=== PATIENT | male | born 1965 | race Caucasian/White ===

== ENCOUNTER 2024-01-25 02:16 | Emergency (ER) | payer SELFPAY ==
[2024-01-25 02:17] VITALS: PULSE 98; RESP 20; TEMP 36.6; O2SAT 98; BMI 57.4
--- NOTE | 2024-01-25 02:32 | W.ED.ALLEREA ---
HPI - Allergic Reaction General: Chief complaint: Allergic Reaction Stated complaint: Allergic Reation Time Seen by Provider: 01/25/24 02:18 History of Present Illness: HPI narrative: Patient presents to the ER with complaints of red itchy rash. Patient states that Claritin at home for left now it is getting better. Patient is had this rash a couple times in the past and it started the process of getting worked up for it but he is did not go back to his provider. Patient said is very pruritic in nature. Patient does not have any allergies that he is aware of or known sensitivities. This rash started earlier tonight. Review of Systems General: Reports: 10 or more systems reviewed and unremarkable except in HPI and below PFSH ED PFSH: Family History Denies family history of Diabetes CAD (coronary artery disease) Clotting disorder Dementia Hyperlipidemia Psychiatric illness Chronic kidney disease (CKD) Suicide Anesthesia complication Bleeding disorder Lung disease Cancer Hypertension Stroke Physical Exam Const: COMMON NORMALS: no acute distress, average body habitus, patient oriented x3, no limitations, healthy appearing, alert and well nourished HENMT: COMMON NORMALS: normocephalic, atraumatic, hearing grossly normal bilaterally, external ears normal, Normal external nose present, moist oral mucous membranes and oropharynx normal HEAD & SCALP: normocephalic and atraumatic NOSE: Normal external nose present EXTERNAL EAR: Yes external ears normal Neck/C-Spine: COMMON NORMALS: no JVD Chest: COMMONS NORMALS: normal inspection of the chest and normal palpation of entire chest wall Resp: COMMON NORMALS: normal respiratory effort, No retractions, No use of accessory muscles and clear to auscultation bilaterally AUSCULTATION: clear to auscultation bilaterally Cardio: COMMON NORMALS: no JVD, regular rate, regular rhythm, S1 normal heart sound present, S2 normal heart sound present, No gallops present (Cardio), No clicks present (Cardio), No murmurs present (Cardio) and No rub (Cardio) RATE: regular rate RHYTHM: regular rhythm HEART SOUNDS: S1 normal heart sound present and S2 normal heart sound present GI: COMMON NORMALS: Normal to inspection, nondistended, normoactive bowel sounds present, Soft to palpation, non-tender, No hepatosplenomegaly present and no masses PALPATION: Yes Soft to palpation and Yes No hepatosplenomegaly present Neuro: COMMON NORMALS: patient oriented x3 SENSORIUM/ORIENTATION: Yes alert Skin: NARRATIVE SKIN EXAM: Red blotchy rash across chest and back. Appears pruritic as patient is continuously scratching Course Vital Signs: Vital signs: Vital Signs Temperature 97.8 F 01/25/24 02:17 Pulse Rate 98 01/25/24 02:17 Respiratory Rate 20 H 01/25/24 02:17 Pulse Oximetry 98 01/25/24 02:17 MDM - Allergic Reaction Medical Decision Making Patient presented with a red blotchy rash. Patient was given 50 mg Benadryl p.o. and 10 mg of Decadron IV. This appeared to help the rash. Patient be discharged home and told to take Benadryl for next 24 hours and follow back up with his PCP. Differential Diagnosis Likely allergic reaction; Unlikely anaphylaxis, angioedema, adverse reaction to drug, viral enanthem or urticaria Medical Records I reviewed the patient's medical records. Lab Data I reviewed the patient's lab results. No radiology studies performed this visit Discharge Plan Discharge Patient Disposition: Home Clinical Impression: Pruritic rash Condition: Stable Prescriptions: No Action No Known Home Medications Discharge Orders: Discharge ED (Routine); Ordered 01/25/24 Ordered By: Javi Monge Referrals: Denis Tee MD [Primary Care Provider] - 1 week Patient Instructions: Acute Rash (ED), Opioid Safety, Pain Management Activity Restrictions/Additional Instructions: Please continue take Benadryl [id number] for the next 24 hours. Please follow-up with your family practice physician for further evaluation testing. Coding Level of Care Code ED Desktop Technician for Cristiana Miguel
[2024-01-25] MEDS: dexamethasone 10 mg/mL INJ IM (02:35)
[2024-01-25] MEDS: diphenhydrAMINE 50 mg Capsule PO (02:35)
[2024-01-25 03:41] VITALS: BP 170/100; PULSE 84; RESP 18; O2SAT 96
== END 2024-01-25 03:42 | disposition home or self-care (01) ==
PROVIDERS: Emergency Provider Emergency Medicine; Family Provider Family Medicine; PCP Family Medicine
DX: L29.9 Pruritus, unspecified (principal)
CPT/HCPCS: 96372; 99284; J1100; Q0163